=== PATIENT | female | born 1950 | race Caucasian/White ===

== ENCOUNTER 2018-01-05 13:12 | Emergency (ER) | payer MEDICARE ==
[~2018-01-05] VITALS: Ht 165.1 cm; Wt 90.7 kg
[~2018-01-05 13:12] MED LIST: ALPR.25 PO; ASPI325 PO; ASPI81CH; Calcium + Vita1 EACH PO; FENO160 PO; Lofibra160 MG; METO50ER; Ocuflox5 ML; Oxybutynin Chlo10 MG PO; Percocet 5-3251 EACH PO; VIT1CAPS12 PO; Zestril30 MG PO
[2018-01-05 14:14] LABS: BASOPHILS ABSOLUTE AUTO 0.02 K/mm3 (0.00-0.23); BASOPHILS PERCENT AUTO 0 % (0-2); EOSINOPHILS ABSOLUTE AUTO 0.13 K/mm3 (0.00-0.68); EOSINOPHILS PERCENT AUTO 2 % (0-6); Hematocrit 33.9 % (33.0-51.0); Hemoglobin 10.7 g/dL (11.5-16.0); IMMATURE GRAN ABSOLUTE AUTO 0.03 K/mm3 (0.00-0.10); IMMATURE GRAN PERCENT AUTO 1 % (0-1); LYMPHOCYTES ABSOLUTE AUTO 1.17 K/mm3 (0.84-5.20); LYMPHOCYTES PERCENT AUTO 18 % (21-46); MONOCYTES ABSOLUTE AUTO 0.49 K/mm3 (0.16-1.47); MONOCYTES PERCENT AUTO 8 % (4-13); Mean Corpuscular HGB 30.3 pg (26.0-34.0); Mean Corpuscular HGB Conc 31.6 g/dL (31.5-36.5); Mean Corpuscular Volume 96 fL (80-100); Mean Platelet Volume 8.9 fL (9.1-12.4); NEUTROPHILS ABSOLUTE AUTO 4.52 K/mm3 (1.96-9.15); NEUTROPHILS PERCENT AUTO 71 % (41-73); Platelet Count 336 K/mm3 (150-400); RDW Coefficient Variation 12.9 % (11.7-14.2); RDW Standard Deviation 45.5 fL (35.1-46.3); Red Blood Cell Count 3.53 M/mm3 (3.80-5.20); White Blood Cell Count 6.36 K/mm3 (4.00-11.30)
[2018-01-05 14:36] LABS: C-REACTIVE PROTEIN, EXT RANGE 0.932 mg/dL (0.000-0.300)
[2018-01-05 14:39] LABS: Alanine Aminotransfer (ALT/SGP 12 U/L (12-78); Albumin, Blood 3.2 g/dL (3.4-5.0); Albumin/Globulin Ratio 0.9 (0.8-1.8); Alk Phos 52 U/L (50-136); Anion Gap 5 mmol/L (6-16); Aspartate Aminotrans (AST/SGOT 18 U/L (12-37); Bilirubin, Total 0.5 mg/dL (0.1-1.0); Blood Urea Nitrogen 23 mg/dL (8-24); Bun/Creatinine Ratio 27.2 (12.0-20.0); CO2, Blood 25 mmol/L (21-32); Calcium, Blood 8.7 mg/dL (8.5-10.1); Chloride, Blood 109 mmol/L (98-108); Creatinine, Blood 0.85 mg/dL (0.40-1.00); Globulin, Blood 3.4 g/dL (2.2-4.0); Glomerular Filtration Rate >60 (60-); Glucose, Blood 90 mg/dL (70-99); Sodium, Blood 139 mmol/L (136-145); Total Protein, Blood 6.6 g/dL (6.4-8.2)
[2018-01-05] MEDS ORDERED: Percocet 7.5-31 EACH PO (16:31)
== END 2018-01-05 16:50 | disposition home or self-care (01) ==
LOC: ER 13:12
PROVIDERS: Emergency Medicine
DX: M25.561 Pain in right knee (principal); G89.29 Other chronic pain; Z88.0 Allergy status to penicillin; Z91.018 Allergy to other foods; Z79.899 Other long term (current) drug therapy; Z79.82 Long term (current) use of aspirin; Z96.651 Presence of right artificial knee joint
CPT/HCPCS: 73562-RT; 80053; 85025; 85651; 86140; 93971; 99284

== ENCOUNTER 2019-02-15 14:07 | Emergency (ER) | payer MEDICARE ==
[~2019-02-15] VITALS: Ht 162.6 cm; Wt 97.5 kg
[~2019-02-15 14:07] MED LIST changes: +Percocet 7.5-31 EACH PO
[2019-02-15 14:59] LABS: BASOPHILS ABSOLUTE AUTO 0.03 K/mm3 (0.00-0.23); BASOPHILS PERCENT AUTO 1 % (0-2); EOSINOPHILS ABSOLUTE AUTO 0.21 K/mm3 (0.00-0.68); EOSINOPHILS PERCENT AUTO 4 % (0-6); Hematocrit 40.8 % (33.0-51.0); Hemoglobin 13.1 g/dL (11.5-16.0); IMMATURE GRAN ABSOLUTE AUTO 0.01 K/mm3 (0.00-0.10); IMMATURE GRAN PERCENT AUTO 0 % (0-1); LYMPHOCYTES ABSOLUTE AUTO 1.45 K/mm3 (0.84-5.20); LYMPHOCYTES PERCENT AUTO 29 % (21-46); MONOCYTES ABSOLUTE AUTO 0.37 K/mm3 (0.16-1.47); MONOCYTES PERCENT AUTO 7 % (4-13); Mean Corpuscular HGB 30.4 pg (26.0-34.0); Mean Corpuscular HGB Conc 32.1 g/dL (31.5-36.5); Mean Corpuscular Volume 95 fL (80-100); Mean Platelet Volume 10.3 fL (9.1-12.4); NEUTROPHILS ABSOLUTE AUTO 2.91 K/mm3 (1.96-9.15); NEUTROPHILS PERCENT AUTO 59 % (41-73); Platelet Count 197 K/mm3 (150-400); RDW Coefficient Variation 12.5 % (11.7-14.2); RDW Standard Deviation 43.3 fL (35.1-46.3); Red Blood Cell Count 4.31 M/mm3 (3.80-5.20); White Blood Cell Count 4.98 K/mm3 (4.00-11.30)
[2019-02-15 15:27] LABS: Alanine Aminotransfer (ALT/SGP 21 U/L (12-78); Albumin, Blood 3.5 g/dL (3.4-5.0); Albumin/Globulin Ratio 1.2 (0.8-1.8); Alk Phos 83 U/L (50-136); Anion Gap 6 mmol/L (6-16); Aspartate Aminotrans (AST/SGOT 18 U/L (12-37); Bilirubin, Total 0.8 mg/dL (0.1-1.0); Blood Urea Nitrogen 13 mg/dL (8-24); Bun/Creatinine Ratio 15.8 (12.0-20.0); CO2, Blood 26 mmol/L (21-32); Calcium, Blood 8.6 mg/dL (8.5-10.1); Chloride, Blood 112 mmol/L (98-108); Creatinine, Blood 0.82 mg/dL (0.40-1.00); Glomerular Filtration Rate >60 (60-); Glucose, Blood 90 mg/dL (70-99); Potassium, Blood 3.9 mmol/L (3.5-5.5); Sodium, Blood 144 mmol/L (136-145); Total Protein, Blood 6.5 g/dL (6.4-8.2); Troponin I <0.015 ng/mL (0.000-0.040)
== END 2019-02-15 17:09 | disposition home or self-care (01) ==
LOC: ER 14:07
PROVIDERS: Physician Assistant
DX: I49.9 Cardiac arrhythmia, unspecified (principal); Z88.0 Allergy status to penicillin; Z91.018 Allergy to other foods; Z79.899 Other long term (current) drug therapy; Z79.82 Long term (current) use of aspirin
CPT/HCPCS: 36415; 71046; 80053; 83735; 84443; 84484; 85025; 93005; 93010; 99285-25

== ENCOUNTER → 2019-08-22 | Outpatient (CLI) | payer MEDICARE ==
[2019-08-22 13:19] LABS: Anion Gap 6 mmol/L (6-16); Blood Urea Nitrogen 20 mg/dL (8-24); Bun/Creatinine Ratio 32.2 (12.0-20.0); CO2, Blood 27 mmol/L (21-32); Chloride, Blood 110 mmol/L (98-108); Creatinine, Blood 0.62 mg/dL (0.40-1.00); Glomerular Filtration Rate >60 (60-); Glucose, Blood 91 mg/dL (70-99); Potassium, Blood 4.5 mmol/L (3.5-5.5); Sodium, Blood 143 mmol/L (136-145)
== END | disposition home or self-care (01) ==
LOC: LAB 11:29 → LAB SHORT 11:29
PROVIDERS: Physician Assistant
DX: I47.1 Supraventricular tachycardia (principal)
CPT/HCPCS: 80048

== ENCOUNTER 2023-04-08 11:29 | Inpatient (IN) | payer MEDICARE ==
[~2023-04-08] VITALS: Ht 165.1 cm; Wt 98.2 kg
[~2023-04-08 11:29] MED LIST changes: -ALEN70 PO; -ASPI81CH PO; -ATORVASTATIN CA80 M1 PO; -BUSP10 PO; -CLON.5 PO; -FLUDROCORTISON0.1 M1 PO; -GABA100 PO; -NITR.4SL SL; -SERT50 PO; -Tambocor100 MG PO
[2023-04-08 12:55] LABS: BASOPHILS ABSOLUTE AUTO 0.04 K/mm3 (0.00-0.23); BASOPHILS PERCENT AUTO 0 % (0-2); EOSINOPHILS ABSOLUTE AUTO 0.13 K/mm3 (0.00-0.68); EOSINOPHILS PERCENT AUTO 2 % (0-6); Hematocrit 41.3 % (33.0-51.0); Hemoglobin 13.7 g/dL (11.5-16.0); IMMATURE GRAN ABSOLUTE AUTO 0.04 K/mm3 (0.00-0.10); IMMATURE GRAN PERCENT AUTO 0 % (0-1); LYMPHOCYTES ABSOLUTE AUTO 2.12 K/mm3 (0.84-5.20); LYMPHOCYTES PERCENT AUTO 24 % (21-46); MONOCYTES ABSOLUTE AUTO 0.66 K/mm3 (0.16-1.47); MONOCYTES PERCENT AUTO 7 % (4-13); Mean Corpuscular HGB 31.4 pg (26.0-34.0); Mean Corpuscular HGB Conc 33.2 g/dL (31.5-36.5); Mean Corpuscular Volume 95 fL (80-100); Mean Platelet Volume 9.9 fL (9.1-12.4); NEUTROPHILS ABSOLUTE AUTO 5.91 K/mm3 (1.96-9.15); NEUTROPHILS PERCENT AUTO 67 % (41-73); Platelet Count 277 K/mm3 (150-400); RDW Coefficient Variation 13.5 % (11.7-14.2); RDW Standard Deviation 47.7 fL (35.1-46.3); Red Blood Cell Count 4.37 M/mm3 (3.80-5.20)
[2023-04-08 13:05] LABS: Albumin, Blood 3.6 g/dL (3.4-5.0); Albumin/Globulin Ratio 1.1 (0.8-1.8); Bilirubin, Total 0.5 mg/dL (0.1-1.0); Bun/Creatinine Ratio 26.4 (12.0-20.0); Calcium, Blood 9.3 mg/dL (8.5-10.1); Creatinine, Blood 0.99 mg/dL (0.40-1.00); Globulin, Blood 3.4 g/dL (2.2-4.0); Potassium, Blood 4.4 mmol/L (3.5-5.5)
[2023-04-08 16:16] LABS: Anti-Xa UFH, PHA Monitoring <0.10 IU/mL; International Normalized Ratio 0.99; Prothrombin Time Results 10.4 Sec (9.7-11.5)
[2023-04-08] MEDS ORDERED: CLON.5 PO (16:40)
[2023-04-08] MEDS ORDERED: SERT50 PO (16:40)
[2023-04-08] MEDS ORDERED: BUSP10 PO (16:41)
[2023-04-08] MEDS ORDERED: Tambocor100 MG PO (16:41)
[2023-04-08] MEDS ORDERED: ALEN70 PO (16:41)
[2023-04-08] MEDS ORDERED: GABA100 PO (16:42)
[2023-04-08 17:27] VITALS: BP 143/60
--- NOTE | 2023-04-08 18:57 | NUR ---
ADMISSION PATIENT ADMITTED TO MEDICAL FLOOR FOR POSSIBLE NSTEMI. PATIENT HAD APPT TO SEE PCP TODAY. DEVELOPED CHEST PAIN AFTER HAVING LABS DRAWN, WENT TO URGENT CARE AND WAS TRANSPORTED TO HERE. PATIENT TO HAVE STRESS TEST IN AM. PATIENT HAS A CARDIAC HX INCLUDING RECENT PACER PLACEMENT. PATIENT ALERT AND AMBULATORY. PATIENT CURRENTLY ON HEPARIN GTT. CONTINUES TO HAVE MILD EPIGASTRIC PAIN THAT INCREASES WITH INSPIRATION. PATIENT HAS A HX OF BRONCHITIS AND GERD.
[2023-04-08 19:38] VITALS: BP 138/63
[2023-04-09 03:59] VITALS: BP 109/67
[2023-04-09 04:56] LABS: Hematocrit 34.2 % (33.0-51.0); Hemoglobin 11.2 g/dL (11.5-16.0); Mean Platelet Volume 9.2 fL (9.1-12.4); Platelet Count 228 K/mm3 (150-400)
[2023-04-09 05:19] LABS: CHOL/HDL RATIO 2.8; Cholesterol 183 mg/dL (50-200); HDL Cholesterol 66 mg/dL (>39); LDL/HDL RATIO 1.6; Low Density Lipoprotein Chol 105 mg/dL (0-110); Triglycerides 62 mg/dL (30-160); Very Low Density Lipoprot Chol 12 mg/dL (6-32)
--- NOTE | 2023-04-09 05:35 | NUR ---
SUMMARY- NO ACUTE EVENTS THIS SHIFT. PT DENIES CHEST PAIN/PRESSURE THIS SHIFT. PT SLEPT WELL. RN ENSURED FIRE SAFETY EVERY HOUR WITH ROUNDS.
[2023-04-09 07:56] VITALS: BP 111/56
[2023-04-09 15:10] VITALS: BP 121/51
--- NOTE | 2023-04-09 18:29 | NUR ---
SHIFT SUMMARY RESTING PORTION OF STRESS TEST COMPLETE. PATIENT TO HAVE EXERCISE PORTION IN AM. PATIENT DENIES ANY CHEST PAIN OR CHEST PRESSURE THROUGHOUT SHIFT. PATIENT ABLE TO AMBULATE TO THE BATHROOM WITH MINIMAL STAND BY ASSIST BECAUSE OF IV POLE. HEPARIN GTT ADJUSTED TO 12U AN HOUR PER PHARMACY.
[2023-04-09 19:42] VITALS: BP 116/53
[2023-04-10] VITALS (8 sets, daily range): BP systolic 76–151; BP diastolic 47–77
[2023-04-10 02:30] LABS: Hematocrit 35.3 % (33.0-51.0); Hemoglobin 11.4 g/dL (11.5-16.0); Mean Platelet Volume 9.4 fL (9.1-12.4); Platelet Count 235 K/mm3 (150-400)
[2023-04-10 02:32] LABS: Bun/Creatinine Ratio 19.8 (12.0-20.0); Calcium, Blood 8.3 mg/dL (8.5-10.1); Creatinine, Blood 0.91 mg/dL (0.40-1.00); Potassium, Blood 4.1 mmol/L (3.5-5.5)
--- NOTE | 2023-04-10 06:43 | NUR ---
HEPARIN REDUCED ORDERED. SBA ASSIST TO TOILET DUE TO IV POLE. PENDING STRESS TEST PART 2 TODAY. UNEVENTFUL NIGHT. PT DENIES CP DURING THIS SHIFT.
--- NOTE | 2023-04-10 18:51 | NUR ---
SHIFT SUMMARY PT 1 PERSON ASSIST TO BATHROOM DUE TO ORTHOSTATIC BLOOD PRESSURES. HAS REPORTED DIZZINESS AFTER RETURNING TO BED UNTIL LR BOLUS GIVEN. NO PAIN OR NAUSEA TODAY. DAUGHTER AT BEDSIDE ON AND OFF THROUGH THE AFTERNOON.
[2023-04-11] VITALS (7 sets, daily range): BP systolic 87–135; BP diastolic 44–71
[2023-04-11 05:10] LABS: BASOPHILS ABSOLUTE AUTO 0.04 K/mm3 (0.00-0.23); BASOPHILS PERCENT AUTO 1 % (0-2); EOSINOPHILS ABSOLUTE AUTO 0.24 K/mm3 (0.00-0.68); EOSINOPHILS PERCENT AUTO 4 % (0-6); Hematocrit 33.3 % (33.0-51.0); Hemoglobin 10.9 g/dL (11.5-16.0); IMMATURE GRAN ABSOLUTE AUTO 0.03 K/mm3 (0.00-0.10); IMMATURE GRAN PERCENT AUTO 0 % (0-1); LYMPHOCYTES ABSOLUTE AUTO 1.39 K/mm3 (0.84-5.20); LYMPHOCYTES PERCENT AUTO 21 % (21-46); MONOCYTES ABSOLUTE AUTO 0.52 K/mm3 (0.16-1.47); MONOCYTES PERCENT AUTO 8 % (4-13); Mean Corpuscular HGB 31.2 pg (26.0-34.0); Mean Corpuscular HGB Conc 32.7 g/dL (31.5-36.5); Mean Corpuscular Volume 95 fL (80-100); Mean Platelet Volume 9.2 fL (9.1-12.4); NEUTROPHILS ABSOLUTE AUTO 4.46 K/mm3 (1.96-9.15); NEUTROPHILS PERCENT AUTO 67 % (41-73); Platelet Count 208 K/mm3 (150-400); RDW Coefficient Variation 13.3 % (11.7-14.2); RDW Standard Deviation 46.5 fL (35.1-46.3); Red Blood Cell Count 3.49 M/mm3 (3.80-5.20); White Blood Cell Count 6.68 K/mm3 (4.00-11.30)
--- NOTE | 2023-04-11 06:08 | NUR ---
UNEVENTFUL NIGHT. POSITIVE FOR ORTHOSTATIC HYPOTENSION. PT REPORTS DIZZINESS HAS IMPROVED VERY MUCH. AMBULATES TO TOILET INDEPENDENTLY. FIRE SAFETY REVIEWED. DENIES CHEST PAIN.
[2023-04-11] MEDS ORDERED: FLUDROCORTISON0.1 M1 PO (15:10)
[2023-04-11] MEDS ORDERED: ASPI81CH PO (15:10)
[2023-04-11] MEDS ORDERED: NITR.4SL SL (15:10)
[2023-04-11] MEDS ORDERED: ATORVASTATIN CA80 M1 PO (15:10)
--- NOTE | 2023-04-11 16:30 | NUR ---
discharge INSTRUCTIONS COMPLETED AND DISCUSSED WITH PT EXPRESSING UNDERSTANDING. SCRIPTS FAXED TO [facility] PER HER REQUEST. NO MEDS NEEDED TO BE PICKED UP TIL TOMORROW. PT EVALUATED PT BEFORE DISCHARGE AND REPORTED HEARING A BRUIT TO L CAROTID. NOTIFIED MD PRIOR TO PT DISCHARGING. TO [facility] VIA W/C WITH DAUGHTER AND BELONGINGS
== END 2023-04-11 16:20 | disposition home or self-care (01) | DRG 281 ==
LOC: ER 11:29 → MEDS 11:30
PROVIDERS: Family Medicine; Student in an Organized Health Care Education/Training Program; ADMIT Internal Medicine
DX: I21.4 Non-ST elevation (NSTEMI) myocardial infarction (principal); I47.1 Supraventricular tachycardia; I20.0 Unstable angina; E78.00 Pure hypercholesterolemia, unspecified; Z66 Do not resuscitate; I10 Essential (primary) hypertension; I95.1 Orthostatic hypotension; D64.9 Anemia, unspecified; M19.90 Unspecified osteoarthritis, unspecified site; M79.2 Neuralgia and neuritis, unspecified; F41.3 Other mixed anxiety disorders; M81.0 Age-related osteoporosis without current pathological fracture; H35.30 Unspecified macular degeneration; N39.3 Stress incontinence (female) (male); Z96.653 Presence of artificial knee joint, bilateral; Z95.0 Presence of cardiac pacemaker; Z88.0 Allergy status to penicillin; Z88.5 Allergy status to narcotic agent; Z88.8 Allergy status to other drugs, medicaments and biological substances; Z98.49 Cataract extraction status, unspecified eye; Z90.710 Acquired absence of both cervix and uterus; Z87.442 Personal history of urinary calculi; Z90.49 Acquired absence of other specified parts of digestive tract; Z98.890 Other specified postprocedural states; Z91.018 Allergy to other foods
CPT/HCPCS: 36415; 71045; 78452; 80048; 80053; 80061; 83735; 84484; 85014; 85018; 85025; 85049; 85520; 85610; 85730; 93005; 93010; 93017; 93306; 94760; 96374; 96375; 96376; 97162; 99285-25; A9270; A9500; G0378; J0706; J1644; J1650; J2270; J2785; J7120

== ENCOUNTER → 2023-04-08 | Outpatient (CLI) | payer MEDICARE ==
[~2023-04-08] MED LIST changes: +ALEN70 PO; +ASPI81CH PO; +ATORVASTATIN CA80 M1 PO; +BUSP10 PO; +CLON.5 PO; +Cardizem CD 24240 MG PO; +FLUDROCORTISON0.1 M1 PO; +GABA100 PO; +LISI20 PO; +NITR.4SL SL; +OXYB5 PO; +SERT50 PO; +Tambocor100 MG PO
== END | disposition home or self-care (01) ==
LOC: LAB SHORT 11:30 → LAB 11:30
DX: R07.9 Chest pain, unspecified (principal)
CPT/HCPCS: 84484

== ENCOUNTER 2024-06-27 21:39 | Emergency (ER) | payer MEDICARE ==
[~2024-06-27] VITALS: Ht 162.6 cm; Wt 88.5 kg
[~2024-06-27 21:39] MED LIST changes: +ALEN70 PO; +ASPI81CH PO; +ATORVASTATIN CA80 M1 PO; +BUSP10 PO; +CLON.5 PO; +FLUDROCORTISON0.1 M1 PO; +GABA100 PO; +NITR.4SL SL; +SERT50 PO; +Tambocor100 MG PO
[2024-06-27] MEDS ORDERED: Ondansetron HCl 2 MG / ML 2ML Vial IV ONE (22:25)
[2024-06-27 22:37] LABS: BASOPHILS ABSOLUTE AUTO 0.04 K/mm3 (0.00-0.23); BASOPHILS PERCENT AUTO 1 % (0-2); EOSINOPHILS ABSOLUTE AUTO 0.19 K/mm3 (0.00-0.68); EOSINOPHILS PERCENT AUTO 3 % (0-6); Hematocrit 38.7 % (33.0-51.0); Hemoglobin 12.5 g/dL (11.5-16.0); IMMATURE GRAN ABSOLUTE AUTO 0.02 K/mm3 (0.00-0.10); IMMATURE GRAN PERCENT AUTO 0 % (0-1); LYMPHOCYTES ABSOLUTE AUTO 1.68 K/mm3 (0.84-5.20); LYMPHOCYTES PERCENT AUTO 22 % (21-46); MONOCYTES ABSOLUTE AUTO 0.46 K/mm3 (0.16-1.47); MONOCYTES PERCENT AUTO 6 % (4-13); Mean Corpuscular HGB 31.2 pg (26.0-34.0); Mean Corpuscular HGB Conc 32.3 g/dL (31.5-36.5); Mean Corpuscular Volume 97 fL (80-100); Mean Platelet Volume 9.1 fL (9.1-12.4); NEUTROPHILS ABSOLUTE AUTO 5.19 K/mm3 (1.96-9.15); NEUTROPHILS PERCENT AUTO 68 % (41-73); Platelet Count 243 K/mm3 (150-400); RDW Coefficient Variation 13.2 % (11.7-14.2); RDW Standard Deviation 47.2 fL (35.1-46.3); Red Blood Cell Count 4.01 M/mm3 (3.80-5.20); White Blood Cell Count 7.58 K/mm3 (4.00-11.30)
[2024-06-27 22:56] LABS: Albumin, Blood 3.5 g/dL (3.4-5.0); Albumin/Globulin Ratio 1.1 (0.8-1.8); Bilirubin, Total 0.5 mg/dL (0.1-1.0); Creatinine, Blood 0.93 mg/dL (0.40-1.00); Globulin, Blood 3.1 g/dL (2.2-4.0); Potassium, Blood 3.9 mmol/L (3.5-5.5); Total Protein, Blood 6.6 g/dL (6.4-8.2)
[2024-06-28] MEDS ORDERED: Ondansetron HCl 2 MG / ML 2ML Vial IV ONE (01:10)
[2024-06-28 01:36] LABS: Source, Urine Clean Catch
[2024-06-28 01:51] LABS: Appearance, Urine Clear (Clear); Bilirubin, Urine Neg (Neg); Blood, Urine Neg (Neg); Color, Urine Yellow (P-Yellow); Glucose Qualitative, Urine Neg (Neg); Ketones, Urine Neg (Neg); Leukocyte Esterase, Urine 2+ (Neg); Nitrite, Urine Neg (Neg); Protein, Urine 2+ (Neg); Specific Gravity, Urine 1.025 (1.003-1.022); Urobilinogen, Urine NORM (Normal)
[2024-06-28 01:53] LABS: Amorphous Light (0-Heavy); Bacteria Few /hpf; Calcium Oxalate Crystals Few /hpf; Red Blood Cells, Urine Not Seen /hpf (0-2); Squamous Epithelial Cells Few /hpf (Few)
[2024-06-28] MEDS ORDERED: FentaNYL Citrate 50 MCG/ML 2 ML Injection IV ONE (02:20)
[2024-06-28] MEDS ORDERED: NS 1,000 ML IV SCH (02:20)
[2024-06-28 05:00] VITALS: BP 151/74
== END 2024-06-28 05:25 | disposition home or self-care (01) ==
LOC: ER 21:39
PROVIDERS: Student in an Organized Health Care Education/Training Program
DX: N13.2 Hydronephrosis with renal and ureteral calculous obstruction (principal); E86.0 Dehydration; K80.20 Calculus of gallbladder without cholecystitis without obstruction; I10 Essential (primary) hypertension; E78.00 Pure hypercholesterolemia, unspecified; Z90.49 Acquired absence of other specified parts of digestive tract; Z88.0 Allergy status to penicillin; Z88.5 Allergy status to narcotic agent; Z91.018 Allergy to other foods; Z79.82 Long term (current) use of aspirin; Z79.83 Long term (current) use of bisphosphonates; Z79.899 Other long term (current) drug therapy; Z59.89 Other problems related to housing and economic circumstances
CPT/HCPCS: 74177; 80053; 81001; 83690; 85025; 87086; 96361; 96374-59; 99285-25; J2405; J3010; J7030; Q9967

== ENCOUNTER 2024-08-20 19:32 | Emergency (ER) | payer OTHER, MEDICARE ==
[~2024-08-20] VITALS: Ht 170.2 cm; Wt 72.6 kg
[2024-08-20 19:43] VITALS: BP 171/75
== END 2024-08-20 20:30 | disposition home or self-care (01) ==
LOC: ER 19:32
DX: S13.9XXA Sprain of joints and ligaments of unspecified parts of neck, initial encounter (principal); V40.6XXA Car passenger injured in collision with pedestrian or animal in traffic accident, initial encounter; I10 Essential (primary) hypertension; E78.00 Pure hypercholesterolemia, unspecified; Z88.0 Allergy status to penicillin; Z88.5 Allergy status to narcotic agent; Z91.018 Allergy to other foods; Z79.899 Other long term (current) drug therapy; Z79.82 Long term (current) use of aspirin
CPT/HCPCS: 99283

== ENCOUNTER 2025-05-25 07:12 | Day surgery (SDC) | payer OTHER ==
[~2025-05-25] VITALS: Ht 162.6 cm; Wt 88.6 kg
[~2025-05-25 07:12] MED LIST changes: +Bupivacaine 0.5% W/EPI 1:200000 SDV 30 ML Vial ONE
[2025-05-25] MEDS ORDERED: CeFAZolin Sodium 2,000 MG VIAL ONE (07:28)
[2025-05-25] MEDS ORDERED: ROSUVASTATIN CAL5 MG PO (07:35)
[2025-05-25] MEDS ORDERED: Midazolam HCl 1MG / ML 2ML Vial ONE (07:53)
[2025-05-25] MEDS ORDERED: FentaNYL Citrate 50 MCG/ML 2 ML Injection ONE (07:53)
[2025-05-25] MEDS ORDERED: Ketorolac Tromethamine 30mg Vial ONE (08:22)
--- NOTE | 2025-05-25 08:59 | NUR ---
05/25/25 0858 Michelle Kenyon PT. CAME OUT WITH LMA, PT. SATS 89% ON RA, PT. PLACED ON 02 N/C AT 5L. SATS 97% & O2 DECREASED TO 2L/NC. LMA REMOVED BY ANESTHESIOLOGIST DR. HESTER. PT. RESPONDED RIGHT AFTER REMOVAL OF LMA.
[2025-05-25 09:21] VITALS: BP 130/63
== END 2025-05-25 10:08 | disposition home or self-care (01) ==
LOC: ORSCSDS 07:12
PROVIDERS: Podiatrist Foot & Ankle Surgery
PROC: 0J8R0ZZ Division of Left Foot Subcutaneous Tissue and Fascia, Open Approach (ICD-10-PCS; principal; 2025-05-25 08:45)
DX: M72.2 Plantar fascial fibromatosis (principal); I10 Essential (primary) hypertension; I47.10 Supraventricular tachycardia, unspecified; E78.5 Hyperlipidemia, unspecified; F41.8 Other specified anxiety disorders; Z79.899 Other long term (current) drug therapy
CPT/HCPCS: A6253; J0690; J1885; J2250; J2704; J3010; J7120